=== PATIENT | female | born 1980 | race Caucasian/White ===

== ENCOUNTER 2018-02-27 02:18 | Outpatient (CLI) | payer OTHER, BC ==
[2018-02-27] MEDS ORDERED: TERBUTALINE 1 MG/ML INJ SC (05:30)
[2018-02-27 07:39] LABS: ADD UMIC NO; UR ASCORBIC ACID NEGATIVE (NEGATIVE); UR BILIRUBIN (Dip) NEGATIVE (NEGATIVE); UR BLOOD (Dip) NEGATIVE (NEGATIVE); UR CLARITY CLEAR (CLEAR); UR COLOR YELLOW (YELLOW); UR GLUCOSE (Dip) NEGATIVE (NEGATIVE); UR KETONES (Dip) 1+ mg/dL (NEGATIVE); UR LEUKOCYTE ESTERASE (Dip) NEGATIVE Leu/ul (NEGATIVE); UR NITRITE (Dip) NEGATIVE (NEGATIVE); UR SPECIFIC GRAVITY (Dip) 1.017 (1.003-1.030); UR TOTAL PROTEIN (Dip) NEGATIVE (NEGATIVE); UR UROBILINOGEN (Dip) NEGATIVE (NEGATIVE)
== END 2018-02-27 08:20 | disposition home or self-care (01) ==
LOC: OBT 02:18 → L-D 02:20 → OBT 08:20
DX: O26.893 Other specified pregnancy related conditions, third trimester (principal); Z3A.33 33 weeks gestation of pregnancy; R10.2 Pelvic and perineal pain; M54.5 Low back pain
CPT/HCPCS: 76815; 76817; 81003; 82731; 87086

== ENCOUNTER 2018-03-17 16:10 | Inpatient (IN) | payer BC, OTHER ==
[2018-03-17] MEDS: LACTATED RINGER'S 1,000 ML IV ×2 (18:22→22:39)
[2018-03-17] MEDS ORDERED: TERBUTALINE 1 MG/ML INJ SC (21:00)
[2018-03-17] MEDS ORDERED: LACTATED RINGER'S 1,000 ML IV ×2 (22:44)
[2018-03-17] MEDS ORDERED: METHYLERGONOVINE 0.2 MG INJ IM (23:00)
[2018-03-17] MEDS ORDERED: OXYTOCIN 30 UNITS/LR 500 ML IV ×3 (23:00)
[2018-03-17] MEDS ORDERED: LIDOCAINE 1% (MPF) 30 ML INJ INJ (23:00)
[2018-03-17] MEDS ORDERED: IBUPROFEN 600 MG TAB PO (23:00)
[2018-03-17] MEDS ORDERED: CARBOPROST 250 MCG INJ IM (23:00)
[2018-03-17] MEDS ORDERED: MISOPROSTOL 200 MCG TAB PR (23:00)
[2018-03-17 23:04] LABS: ADD MAN DIFF? NO
[2018-03-17 23:05] LABS: BASOPHILS % 0.3 % (0.0-2.0); EOSINOPHILS # 0.1 10^3/ul (0.0-0.5); HEMATOCRIT 31.6 % (37.0-47.0); HEMOGLOBIN 10.2 g/dl (12.0-16.0); LYMPHOCYTES # 2.3 10^3/ul (0.8-2.9); LYMPHOCYTES % 32.4 % (15.0-51.0); MEAN CORPUSCULAR HEMOGLOBIN 27.9 pg (29.0-33.0); MEAN CORPUSCULAR HGB CONC 32.3 g/dl (32.0-37.0); MEAN CORPUSCULAR VOLUME 86.6 fl (82.0-101.0); MEAN PLATELET VOLUME 10.3 fl (7.4-10.4); MONOCYTE # 0.6 10^3/ul (0.3-0.9); MONOCYTES % 8.8 % (0.0-11.0); NEUTROPHILS % 57.2 % (39.0-77.0); PLATELET COUNT 201 10^3/UL (140-415); RED BLOOD COUNT 3.65 10^6/ul (4.20-5.40); RED CELL DISTRIBUTION WIDTH 12.3 % (11.5-14.5)
[2018-03-17 23:21] LABS: PARTIAL THROMBOPLASTIN TIME 26.3 Sec (23.0-35.0); PROTIME 12.2 Sec (11.9-14.9)
[2018-03-17 23:53] LABS: HEPATITIS B SURFACE ANTIGEN NEGATIVE (NEGATIVE)
[2018-03-18] MEDS: AMPICILLIN 2 GM/NS (PMX) 100 ML IV (01:07)
[2018-03-18] MEDS: AMPICILLIN 1 GM/NS (PMX) 50 ML IV (06:26)
[2018-03-18] MEDS: LACTATED RINGER'S 1,000 ML IV (08:25)
[2018-03-18 20:51] LABS: RAPID PLASMA REAGIN NONREACTIVE (NR)
== END 2018-03-18 09:28 | disposition home or self-care (01) | DRG 833 ==
LOC: OBT 16:10 → L-D 03-18 00:41 → OBT 22:50 → L-D 22:50
PROVIDERS: Obstetrics & Gynecology
DX: O60.03 Preterm labor without delivery, third trimester (principal); Z3A.36 36 weeks gestation of pregnancy
CPT/HCPCS: 76815; 76818; 85025; 85610; 85730; 86592; 86850; 86900; 86901; 87340; 96360; 96361

== ENCOUNTER 2018-03-21 19:37 | Inpatient (IN) | payer BC ==
[2018-03-21] MEDS ORDERED: BUTORPHANOL 2 MG INJ IV (20:30)
[2018-03-21] MEDS ORDERED: AMPICILLIN 2 GM/NS (PMX) 100 ML IV (20:30)
[2018-03-21] MEDS ORDERED: MISOPROSTOL 200 MCG TAB PR (20:30)
[2018-03-21] MEDS ORDERED: LIDOCAINE 1% (MPF) 30 ML INJ INJ (20:30)
[2018-03-21] MEDS ORDERED: IBUPROFEN 600 MG TAB PO (20:30)
[2018-03-21] MEDS ORDERED: METHYLERGONOVINE 0.2 MG INJ IM (20:30)
[2018-03-21] MEDS ORDERED: OXYTOCIN 30 UNITS/LR 500 ML IV ×3 (20:30)
[2018-03-21] MEDS ORDERED: CARBOPROST 250 MCG INJ IM (20:30)
[2018-03-21] MEDS: LACTATED RINGER'S 1,000 ML IV (20:45)
[2018-03-21 20:56] LABS: ADD MAN DIFF? NO
[2018-03-21 20:59] LABS: BASOPHILS % 0.2 % (0.0-2.0); EOSINOPHILS # 0.1 10^3/ul (0.0-0.5); EOSINOPHILS % 0.6 % (0.0-7.0); HEMATOCRIT 32.2 % (37.0-47.0); HEMOGLOBIN 10.7 g/dl (12.0-16.0); LYMPHOCYTES # 1.9 10^3/ul (0.8-2.9); LYMPHOCYTES % 19.8 % (15.0-51.0); MEAN CORPUSCULAR HEMOGLOBIN 28.2 pg (29.0-33.0); MEAN CORPUSCULAR HGB CONC 33.2 g/dl (32.0-37.0); MEAN PLATELET VOLUME 10.4 fl (7.4-10.4); MONOCYTE # 0.7 10^3/ul (0.3-0.9); NEUTROPHIL # 6.8 10^3/ul (1.6-7.5); NEUTROPHILS % 72.2 % (39.0-77.0); PLATELET COUNT 188 10^3/UL (140-415); RED BLOOD COUNT 3.79 10^6/ul (4.20-5.40); RED CELL DISTRIBUTION WIDTH 12.5 % (11.5-14.5)
[2018-03-21 20:59] LABS: WHITE BLOOD COUNT 9.4 10^3/ul (4.8-10.8)
[2018-03-21 21:18] LABS: INR 0.85; PROTIME 11.7 Sec (11.9-14.9); PT RATIO 0.9
[2018-03-21 21:19] LABS: PARTIAL THROMBOPLASTIN TIME 25.7 Sec (23.0-35.0)
[2018-03-22] MEDS ORDERED: AMPICILLIN 1 GM/NS (PMX) 50 ML IV (00:30)
[2018-03-22] MEDS: LACTATED RINGER'S 1,000 ML IV ×3 (03:58→20:37)
[2018-03-22 15:18] LABS: RAPID PLASMA REAGIN NONREACTIVE (NR)
[2018-03-23] MEDS: LACTATED RINGER'S 1,000 ML IV (04:59)
== END 2018-03-23 12:12 | disposition left against medical advice (07) | DRG 832 ==
LOC: OBT 19:37 → L-D 19:38 → OBT 20:18 → L-D 20:18
PROVIDERS: Obstetrics & Gynecology
DX: O46.8X3 Other antepartum hemorrhage, third trimester (principal); O47.1 False labor at or after 37 completed weeks of gestation; O09.523 Supervision of elderly multigravida, third trimester; Z3A.37 37 weeks gestation of pregnancy
CPT/HCPCS: 76816; 76818; 85025; 85610; 85730; 86592; 86900; 86901